=== PATIENT | male | born 1980 | race Caucasian/White ===

== ENCOUNTER 2024-03-02 19:25 | Emergency (ER) | payer OTHER ==
[~2024-03-02] VITALS: Ht 172.7 cm; Wt 88.5 kg
[2024-03-02 19:29] VITALS: BP 142/99; PULSE 111; RESP 22; TEMP 98; O2SAT 98
[2024-03-02] MEDS: KETOROLAC 60 MG/2 ML VIAL IM ONE (19:45)
== END 2024-03-02 19:56 ==
LOC: MED 19:25
DX: R07.89 Other chest pain (principal); M54.2 Cervicalgia; M25.562 Pain in left knee; R03.0 Elevated blood-pressure reading, without diagnosis of hypertension; V49.9XXA Car occupant (driver) (passenger) injured in unspecified traffic accident, initial encounter; Y93.89 Activity, other specified; Y92.89 Other specified places as the place of occurrence of the external cause; Y99.8 Other external cause status
CPT/HCPCS: 96372; 99283; J1885